=== PATIENT | female | born 1975 | race Caucasian/White ===

== ENCOUNTER 2019-10-11 10:06 | Emergency (ER) | payer MEDICAID ==
[~2019-10-11] VITALS: Ht 165.1 cm; Wt 99.8 kg
[2019-10-11 10:18] VITALS: BP 121/78
--- NOTE | 2019-10-11 10:21 | NUR ---
PT BIBA AND PLACED IN BED 8
--- NOTE | 2019-10-11 10:50 | NUR ---
43 Y/F BIBA FROM URGENT CARE FOR SOB X 5 DAYS. SOB WORSE YESTERDAY, PT C/O PRODUCTIVE COUGH, ST, FEVER 101.3, BODY ACHE, CHEST CONGESION 6/10 DULL PAIN, B EAR PAIN. PT HAD A ALBUTEROL TX ON THE AMBULANCE AND REPORTS RELIEF. LUNGS CLEAR B, EVEN RESPIRATIONS, NO CRACKLES OR WHEEZES AUSCULTATED. DENIES N/V/D, DENIES DYSURIA. HX - ASTHMA, COPD RX- PT TAKING TYLENOL, MOTRIN, ALBUTEROL, AT [facility]
--- NOTE | 2019-10-11 10:54 | NUR ---
IV PLACED BY MEDICS IN L AC.
--- NOTE | 2019-10-11 11:00 | NUR ---
PT PLACED ON 3 LEAD EKG, AND ATTACHED TO PULSE OX.
--- NOTE | 2019-10-11 11:24 | NUR ---
AMBULATED WITH PT FOR URINE SAMPLE. STEADY GATE, NO DISTRESS.
--- NOTE | 2019-10-11 11:34 | NUR ---
INFLUENZA SWAB COLLECTED AND TAKEN TO LAB TO BE PROCESSED.
[2019-10-11 13:38] VITALS: BP 132/87
--- NOTE | 2019-10-11 13:39 | NUR ---
Patient discharged with v/s stable. Written and verbal after care instructions given and explained. Patient alert, oriented and verbalized understanding of instructions. Ambulatory with steady gait. All questions addressed prior to discharge. ID band removed. Patient advised to follow up with PMD. Rx of AZITHROMYCIN/PREDNISONE/MOTRIN/PROMETHAZINE DM given. Patient educated on indication of medication including possible reaction and side effects. Opportunity to ask questions provided and answered.
== END 2019-10-11 13:39 | disposition home or self-care (01) ==
LOC: MED 10:06
DX: J20.9 Acute bronchitis, unspecified (principal); J44.0 Chronic obstructive pulmonary disease with (acute) lower respiratory infection; Z88.1 Allergy status to other antibiotic agents
CPT/HCPCS: 81002; 81025; 87804; 99283